=== PATIENT | female | born 1975 | race African-American/Black ===

== ENCOUNTER 2017-05-02 11:43 | Emergency (ER) | payer OTHER ==
[~2017-05-02] VITALS: Ht 172.7 cm; Wt 68.5 kg
[~2017-05-02 11:43] MED LIST: CYCLOBENZAPRINE5 MG PO; LEXAPRO5 MG PO; MINASTRIN 24 F1 EACH PO
[2017-05-02] MEDS ORDERED: MEDROLDOSEPACK PO (12:51)
[2017-05-02] MEDS ORDERED: HYDROCODONE-AP1 EAC6 PO (12:51)
[2017-05-02] MEDS ORDERED: FLEXERIL PO (12:51)
[2017-05-02 13:03] VITALS: BP 111/71
== END 2017-05-02 12:55 | disposition home or self-care (01) ==
LOC: ER 11:43
DX: S16.1XXA Strain of muscle, fascia and tendon at neck level, initial encounter (principal); Z88.6 Allergy status to analgesic agent; V89.2XXA Person injured in unspecified motor-vehicle accident, traffic, initial encounter; Y93.89 Activity, other specified; Y92.89 Other specified places as the place of occurrence of the external cause; Y99.8 Other external cause status

== ENCOUNTER 2019-02-04 08:38 | Emergency (ER) | payer OTHER ==
[~2019-02-04] VITALS: Ht 172.7 cm; Wt 72.6 kg
[~2019-02-04 08:38] MED LIST changes: +FLEXERIL PO; +HYDROCODONE-AP1 EAC6 PO; +MEDROLDOSEPACK PO
[2019-02-04] MEDS ORDERED: ULTRAM 50MG TAB50 MG PO (10:57)
[2019-02-04] MEDS ORDERED: NORFLEX100 MG PO (10:57)
[2019-02-04 11:40] VITALS: BP 126/97
== END 2019-02-04 11:40 | disposition home or self-care (01) ==
LOC: ER 08:38
DX: S16.1XXA Strain of muscle, fascia and tendon at neck level, initial encounter (principal); Z88.6 Allergy status to analgesic agent; V89.2XXA Person injured in unspecified motor-vehicle accident, traffic, initial encounter; Y92.89 Other specified places as the place of occurrence of the external cause; Y93.89 Activity, other specified; Y99.8 Other external cause status